=== PATIENT | female | born 1975 | race Caucasian/White ===

== ENCOUNTER → 2017-07-05 | Outpatient (CLI) | payer BC, OTHER ==
[~2017-07-05] MED LIST: DERMOPLAST SPRA56 ML; GLUCOPHAGE500 MG; IBUPROFEN 600600 M1; LANOLIN56 GM; TUCKS MEDICATE1 EAC1
== END ==
LOC: RAD 13:14
DX: Z12.31 Encounter for screening mammogram for malignant neoplasm of breast (principal)